=== PATIENT | male | born 1965 | race Caucasian/White ===

== ENCOUNTER 2023-05-02 09:50 | Outpatient (CLI) | payer OTHER, SELFPAY ==
--- NOTE | 2023-05-02 08:30 | DI.RAD_ITS ---
Exam(s) XR KNEE LT 3V AP,LAT,LACIE EXAM: XR KNEE LT 3V AP,LAT,LACIE CLINICAL HISTORY: L knee pain. TECHNIQUE: 2D digital imaging was performed. Three views. COMPARISON: No exams were available for comparison FINDINGS: BONES: No acute fracture is present. No bony destructive lesion is seen. Small enthesophyte at quadr iceps insertion. JOINTS: The knee is normally aligned. A small joint effusion is seen. Minimal periarticular spurring . SOFT TISSUE: Normal. IMPRESSION: Minimal degenerative changes. Small joint effusion. DATA REPOSITORY: RADIATION DOSE DELIVERED:
== END 2023-05-02 09:51 | disposition home or self-care (01) ==
LOC: DIORS 09:50
PROVIDERS: Visit Provider Physician Assistant
DX: M25.562 Pain in left knee (principal)
CPT/HCPCS: 73562

== ENCOUNTER 2025-08-22 13:26 | Outpatient (CLI) | payer OTHER, SELFPAY ==
--- NOTE | 2025-08-22 13:15 | DI.RAD_ITS ---
Exam(s) XR HIP LT COMPLETE AP PELVIS EXAM: XR HIP LT COMPLETE AP PELVIS CLINICAL HISTORY: pain. TECHNIQUE: 2D digital imaging was performed of the left hip. Three views were obtained. AP pelvis and lateral left hip views were obtained. COMPARISON: No exams were available for comparison FINDINGS: BONES: No acute fracture is present. No bony destructive lesion is seen. JOINTS: No dislocation present. There is mild narrowing of the superior joint space of the left hip. The right hip is well maintained. The sacroiliac joints and symphysis pubis are unremarkable. SOFT TISSUE: Normal. IMPRESSION: Mild left hip joint space narrowing. DATA REPOSITORY: RADIATION DOSE DELIVERED:
== END 2025-08-22 13:27 | disposition home or self-care (01) ==
LOC: DIORS 13:26
PROVIDERS: PCP Family Medicine; Visit Provider Physician Assistant
DX: M25.552 Pain in left hip (principal); M25.852 Other specified joint disorders, left hip
CPT/HCPCS: 73502

== ENCOUNTER 2025-09-21 03:19 | Outpatient (CLI) | payer OTHER, SELFPAY ==
[2025-09-21 07:24] LABS: Abs Immature Grans 0.01 10^3/uL (0.0-0.06); HCT 43.2 % (40.0-50.0); HGB 14.7 g/dL (13.5-17.5); Immature Grans % 0.3 %; MCH 30.2 pg (27.0-33.0); MCHC 34.0 % (32.0-36.0); MCV 89 fL (80-95); MPV 10.2 fL (8.0-11.0); Platelet Count 179 10^3/uL (130-400); RBC 4.87 10^6/uL (4.36-5.78); RDW 11.7 % (11.8-14.1); RDW-SD 37.8 fL; WBC 3.36 10^3/uL (4.4-10.8)
[2025-09-21 07:42] LABS: Hemoglobin A1C 5.1 % (<5.7)
[2025-09-21 07:43] LABS: ALT 20 U/L (10-49); AST 24 U/L (<34); Albumin 4.5 g/dL (3.2-5.0); Alkaline Phosphatase 61 U/L (46-116); Anion Gap 1.7 mmol/L (3-11); BUN 19 mg/dL (9-23); Bilirubin, Total 0.80 mg/dL (0.2-1.2); CO2 32.3 mmol/L (20.0-31.0); Calcium 9.4 mg/dL (8.3-10.6); Chloride 106 mmol/L (98-107); Cholesterol 239 mg/dL (<200); Glucose 101 mg/dL (74-106); HDL Cholesterol 53 mg/dL (>40); Potassium 4.8 mmol/L (3.5-5.1); Sodium 140 mmol/L (136-145); Total Protein 7.4 g/dL (5.7-8.2)
[2025-09-21 18:25] LABS: PSA, Screening 0.8 ng/mL (<=3.5)
== END 2025-09-21 03:20 | disposition home or self-care (01) ==
LOC: LBO 03:20
PROVIDERS: PCP Pediatrics; Visit Provider Pediatrics
DX: Z13.1 Encounter for screening for diabetes mellitus (principal); Z12.5 Encounter for screening for malignant neoplasm of prostate; Z13.220 Encounter for screening for lipoid disorders; Z00.00 Encounter for general adult medical examination without abnormal findings
CPT/HCPCS: 36415; 80053; 80061; 84153; 83036; 85025